=== PATIENT | male | born 1970 | race Caucasian/White ===

== ENCOUNTER → 2018-03-20 12:23 | Outpatient (CLI) | payer OTHER | END | disposition home or self-care (01) | LOC: D.MRI 12:23 | DX: G45.9 Transient cerebral ischemic attack, unspecified (principal) ==

== ENCOUNTER 2021-02-05 05:57 | Day surgery (SDC) | payer OTHER ==
[~2021-02-05] VITALS: Ht 175.3 cm; Wt 86.2 kg
--- NOTE | ~2021-02-05 | OP ---
PATIENT NAME: GEORGINA HAMPTON MEDICAL RECORD: [id number] :66 LOCATION:[facility] ADMISSION DATE: SURGEON: MAYO HUA MD DATE OF OPERATION: 02/05/2021 PREOPERATIVE DIAGNOSIS: Right distal biceps tendon tear. POSTOPERATIVE DIAGNOSIS: Right distal biceps tendon tear. PROCEDURE PERFORMED: Right distal biceps tendon repair. INDICATIONS FOR THE PROCEDURE: Mr. Hampton is a 50-year-old male who injured his right elbow approximately 2 weeks ago. He was doing some lifting when he felt a pop in the elbow and felt like he had injured his biceps tendon. He has done the similar thing on the left that required repair. He was seen in the orthopedic office. An MRI was obtained, which showed partial tear of the distal biceps. Exam confirmed tear. Arrangements were made for him to come to the operating room today for operative repair. Risks, benefits and alternatives of surgery were discussed with the patient and consent was obtained. DESCRIPTION OF THE PROCEDURE: The patient was met in the holding area where his identity and confirmation of procedure was performed. The right upper extremity was marked. He was taken to the operating room where he was placed supine on the operating table, and anesthesia was administered. A tourniquet was applied to the right arm and the right arm was prepped and draped in a sterile fashion. The patient received preoperative antibiotics and timeout was performed prior to initiating the case. On initiation of the case, the arm was exsanguinated and the tourniquet was raised. Total tourniquet time was 75 minutes. An incision was made over the forearm just medial to the mobile wad extending from the antecubital fossa distally. We incised through the skin and subcutaneous tissues, dissecting down to the cephalic vein. The vein was then retracted laterally. Lateral antecubital brachial cutaneous nerve was just beneath this. We continued our dissection deep and we were able to identify the biceps tendon within the antecubital fossa running down to the radial tuberosity. There was a leash of vessels distally that was exposed and limiting our visualization. These were clamped and tied, one of these was the radial recurrent artery. On exploration of the tendon insertion, it was noted to be approximately 75% torn. The remainder of the fibers were released. We then were able to prepare the tendon stump with a suture. A Krackow suture was run up the tendon approximately 3 cm and then brought back down leaving 1 cm distally for sliding into the tunnel. We then placed a cross suture beginning proximally and running distally. The Krackow ends were then placed through the button and these were brought back through the tendon and tied to the cross sutures on each side. The button was securely fastened with just a few mm left from the tendon stump. With the tendon prepared, it was sized to a size 7. We then began preparing the radial tuberosity for fixation. A Beath pin was used to localize our placement under fluoroscopy. Once we were pleased with its position, it was drilled bicortically through the tuberosity. We then over reamed the near cortex with the size 7 reamer. Suture ends were placed on the Beath pin and that was then pushed through the far cortex and pulled out posteriorly. Tension was applied as the button was pulled through the cortex and allowed to flip on the far cortex of the tuberosity. The elbow was cycled in flexion and extension and noted to have a good secure fixation of the button and good tensioning of the biceps. The tendon stump was visualized to be well within the socket. The wound was irrigated thoroughly with saline. The tourniquet was let down and OPERATIVE REPORT [id number] GEORGINA HAMPTON hemostasis was obtained. Deep tissues were then closed with Vicryl and the skin was closed with Monocryl. Steri-Strips were placed. A sterile dressing was applied and the patient was placed into a posterior long arm splint with the elbow flexed at 90 degrees. He was then placed into a sling turned back over to anesthesia where he was awakened and taken to the recovery room in stable condition. POSTOPERATIVE PLAN: The patient is going to return home with his family today. He needs to remain in the splint until followup. We will see him back in clinic in 2 weeks. COMPLICATIONS: None. ESTIMATED BLOOD LOSS: 10 mL. ANESTHESIA: General. TRANSINT:[id number] Voice Confirmation ID: [id number] DOCUMENT ID: [id number] MAYO HUA MD CC: [id number] DICTATION DATE: 02/05/211703 ESTATE ADMINISTRATOR: 02/06/21 0018 [facility] 02/05/21 [place] [address]
[~2021-02-05 05:57] MED LIST: CRESTOR10 MG PO; FOLIC ACID1 MG PO; MULTI-DAY VITAM1 TAB PO; NEXIUM40 MG PO
[2021-02-05 07:44] VITALS: BP 109/72; Ht 175.3 cm; Wt 86.2 kg
--- NOTE | 2021-02-05 13:25 | NUR ---
PT HAS NO FEELING OR MOVEMENT IN RT HAND D/T BLOCK
--- NOTE | 2021-02-05 14:10 | NUR ---
DC TEACHING COMPLETE TO PT, AND DTR. VERBALIZED UNDERSTANDING. 1510 PIV DC'D, CATHETER INTACT. PT GETTING DRESSED WITH 'S HELP. 1530 PT DC'V VIA WC BY HUSSEIN NIXON WITH ALL BELONGINGS AND DC PACKET TO POV WITH FAMILY MEMBER DRIVING.
== END 2021-02-05 15:30 | disposition home or self-care (01) ==
LOC: D.OPS 05:57
PROVIDERS: ATTEND Orthopaedic Surgery
DX: S46.291A Other injury of muscle, fascia and tendon of other parts of biceps, right arm, initial encounter (principal); X58.XXXA Exposure to other specified factors, initial encounter; M25.521 Pain in right elbow